=== PATIENT | male | born 1940 | race American Indian/Alaskan Native ===

== ENCOUNTER 2016-11-09 10:12 | Outpatient (CLI) | payer MEDICARE ==
--- NOTE | 2016-11-09 14:56 | Nuclear Medicine Report ---
BONE SCAN: History: Prostate cancer. Comparison: CT abdomen and pelvis without contrast performed the same day. After injection of isotope, gamma camera imaging of the bony system was done. There is a normal uptake of isotope throughout the bony structures without areas of significantly increased or decreased uptake. Mild degenerative uptake in the lumbar spine is noted which is also seen on the CT performed the same day. Normal uptake in the urinary system is seen. IMPRESSION: Negative bone scan.
--- NOTE | 2016-11-10 10:46 | Cat Scan Report ---
CT ABDOMEN AND PELVIS WITHOUT CONTRAST: HISTORY: Prostate cancer. TECHNIQUE: Helical CT without IV contrast. Sagittal and coronal reformatted images. FINDINGS: No comparison. The prostate gland is at the upper limits of normal size measuring 5 cm in diameter. The kidneys, adrenal glands and bladder are within normal limits. No nephrolithiasis. The liver, biliary system, pancreas, spleen, aorta and bowel loops are unremarkable. Normal appendix. The aorta is normal caliber. There is no evidence for retroperitoneal, mesenteric or pelvic adenopathy. Normal heart size. Clear lung bases. There is mild levoscoliosis in the thoracolumbar spine with degenerative changes. No evidence for blastic bony lesion. IMPRESSION: 1. No evidence for metastatic disease to the abdomen and pelvis. 2. Borderline enlargement of the prostate gland. 3. No visceral mass, adenopathy or bony lesion is appreciated.
== END 2016-11-09 10:13 | disposition home or self-care (01) ==
LOC: NM 10:12
PROVIDERS: ATTEND Urology
DX: C61 Malignant neoplasm of prostate (principal); M41.85 Other forms of scoliosis, thoracolumbar region; M47.895 Other spondylosis, thoracolumbar region; M46.85 Other specified inflammatory spondylopathies, thoracolumbar region
CPT/HCPCS: 74176; 78306; A9503